=== PATIENT | male | born 1955 | race African-American/Black ===

== ENCOUNTER 2017-06-21 09:21 | Outpatient (CLI) | payer OTHER ==
--- NOTE | 2017-06-21 12:44 | MRI ---
MRI OF RIGHT SHOULDER PERFORMED WITHOUT CONTRAST ENHANCEMENT: Date: 06/21/17 HISTORY: Right shoulder pain. FINDINGS: Fairly marked AC joint hypertrophic change is present. There is a full thickness, partial width supraspinatus tendon tear. The full thickness component of t his is essentially nonretracted. Full thickness component only measures approximately 4-5 mm, but the re is fairly significant undersurface component extending into the more posterior fibers of the supra spinatus tendon. The undersurface component involves the entire width of the supraspinatus. Infraspin atus tendon is intact. The superior fibers of the subscapularis tendon are tendinopic and I suspect that there is an associa sarah undersurface tear. The biceps tendon is very tendinopic in appearance, and at the labral attachme nt of the biceps tendon just posterior to this the labrum has a frayed irregular appearance suggestin g this represents a SLAP type lesion. Tendinopathy in the interarticular portion of the biceps tendon may be accompanied by a split tear. The inferior glenohumeral ligament is intact. There is no significant rotator cuff muscle atrophy. IMPRESSION: 1. Supraspinatus tendon tear. This is a partial width, full thickness tear, with a fairly significan t undersurface component involving the remainder of the tendon. 2. Irregular appearance to the posterior superior labrum just posterior to the biceps anchor suggest ing a SLAP type tear. There is a tendinopic appearance to the interarticular portion of the biceps te ndon with some increased signal change. This could be tendinopathy but could also indicate a split te ar. There is also a probable partial thickness tear of the superior fibers of the subscapularis tendo n. POS: [facility]
== END 2017-06-21 09:22 | disposition home or self-care (01) ==
LOC: MRI 09:21
PROVIDERS: ATTEND Orthopaedic Surgery
DX: M25.511 Pain in right shoulder (principal); S46.811A Strain of other muscles, fascia and tendons at shoulder and upper arm level, right arm, initial encounter

== ENCOUNTER 2017-11-12 12:12 | Outpatient (CLI) | payer OTHER ==
[2017-11-12 13:23] LABS: Mean Corpuscular HGB CONC 33.3 g/dL (32.0-36.0); Mean Corpuscular Hemoglobin 28.3 pg (27.0-31.0); Mean Corpuscular Volume 84.9 fL (78.0-98.0); Mean Platelet Volume 8.4 fL (7.4-10.4); Platelet Count 217 thou/uL (130-400); Red Blood Cell (RBC) Count 4.97 mill/uL (4.70-6.10); White Blood Cell (WBC) Count 5.9 thou/uL (4.8-10.8)
[2017-11-12 13:39] LABS: Anion Gap 13 mmol/L (10-20); BUN (Urea Nitrogen) 18 mg/dL (8.4-25.7); Calc. Creatinine Clearance 0 mL/min (70-130); Calcium 10.4 mg/dL (7.8-10.44); Carbon Dioxide 26 mmol/L (23-31); Chloride 103 mmol/L (98-107); Estimated GFR-MDRD 80; Glucose 174 mg/dL (80-115); Potassium 4.4 mmol/L (3.5-5.1); Sodium 138 mmol/L (136-145)
--- NOTE | 2017-11-13 15:21 | EKG ---
Test Reason : Blood Pressure : / mmHG Vent. Rate : 074 BPM Atrial Rate : 074 BPM P-R Int : 168 ms QRS Dur : 090 ms QT Int : 354 ms P-R-T Axes : 069 065 043 degrees QTc Int : 392 ms Sinus rhythm with Fusion complexes Septal infarct , age undetermined cannot be excluded Abnormal ECG Confirmed by SARAH FELDER ([id number]) on 11/13/2017 3:21:08 PM Referred By: MERE Confirmed By:SARAH FELDER
== END 2017-11-12 12:13 | disposition home or self-care (01) ==
LOC: LABBT 12:12
PROVIDERS: ATTEND Orthopaedic Surgery
DX: Z01.818 Encounter for other preprocedural examination (principal); M75.101 Unspecified rotator cuff tear or rupture of right shoulder, not specified as traumatic
CPT/HCPCS: 80048; 85027; 93005; 93010

== ENCOUNTER 2017-11-14 09:40 | Day surgery (SDC) | payer OTHER ==
[2017-11-12 12:41] VITALS: BMI 28.1
[2017-11-14] MEDS ORDERED: CEFAZOLIN/Water 2 GM/20 ML SYRINGE ONE (09:42)
[2017-11-14] MEDS ORDERED: Fentanyl 100 MCG/2 ML VIAL ONE (10:43)
[2017-11-14] MEDS ORDERED: Midazolam HCl 2 mg/2 ml Vial ONE (10:43)
[2017-11-14] MEDS ORDERED: Promethazine HCl 25 MG/ML VIAL IM PRN (11:15)
[2017-11-14] MEDS ORDERED: Ondansetron HCl/PF 4 MG/2 ML Vial IVP PRN ×2 (11:15→14:12)
[2017-11-14] MEDS ORDERED: Ropivacaine HCl/PF 1,100 MG in Sodium Chloride 0.9% 440 ML NERVE BLCK SCH (11:15)
[2017-11-14] MEDS ORDERED: HYDROcodone/Acetaminophen 5/325 mg Tablet PO PRN ×2 (11:15)
[2017-11-14] MEDS ORDERED: Zolpidem Tartrate 5 MG TAB PO PRN (11:15)
[2017-11-14] MEDS ORDERED: traMADol HCl 50 MG TAB PO PRN ×2 (11:15)
[2017-11-14] MEDS ORDERED: Fentanyl 100 MCG/2 ML VIAL IV PRN (11:16)
[2017-11-14] MEDS ORDERED: Bupivacaine HCl 0.25%/Epi 0.0005/PF 10 ML VIAL FS ONE ×2 (12:07→12:08)
[2017-11-14] MEDS ORDERED: Phenylephrine HCL 10 MG/ML VIAL ONE (13:15)
[2017-11-14] MEDS ORDERED: PHENYLEPHRINE-NS 100 MCG/ML 10 ML SYRINGE ONE ×2 (13:15→13:59)
[2017-11-14] MEDS ORDERED: Ropivacaine 0.5% HCl/PF (150 MG/30 ML VIAL) ONE (13:45)
[2017-11-14] MEDS ORDERED: Ropivacaine 0.2% HCl/PF (40 MG/20 ML VIAL) ONE (13:45)
[2017-11-14] MEDS ORDERED: ePHEDrine/0.9% NaCl/PF SYRINGE 50 mg/10 ml ONE (13:59)
[2017-11-14] MEDS ORDERED: Ondansetron HCl/PF 4 MG/2 ML Vial ONE (13:59)
[2017-11-14] MEDS ORDERED: Ketorolac Tromethamine 30 MG/ML VIAL ONE (13:59)
[2017-11-14] MEDS ORDERED: PROPOFOL 200 MG/20 ML VIAL ONE (13:59)
[2017-11-14] MEDS ORDERED: Glycopyrrolate 0.2 MG/ML 5 ML SYRINGE ONE (13:59)
[2017-11-14] MEDS ORDERED: Dexamethasone 20 MG/5 ML VIAL ONE (13:59)
[2017-11-14] MEDS ORDERED: Morphine Sulfate 2 MG/ML SYRINGE SLOW IVP PRN (14:12)
[2017-11-14] MEDS ORDERED: Promethazine HCl 25 MG/ML VIAL SLOW IVP PRN (14:12)
--- NOTE | 2017-11-14 22:02 | OP ---
DATE OF PROCEDURE: 11/14/2017 PREOPERATIVE DIAGNOSES: Right full thickness supraspinatus tear, distal clavicle arthritis, chronic shoulder pain. POSTOPERATIVE DIAGNOSES: 1. Right rotator cuff repair. 2. Impingement syndrome. PROCEDURE PERFORMED: 1. Right rotator cuff repair. 2. Subacromial decompression. STAFF: Corbin Vigil M.D. ECONOMICS ANALYST: None. ANESTHESIA: Dr. Naik The patient received general endotracheal intubation and interscalene block. ESTIMATED BLOOD LOSS: 30 mL. TOURNIQUET TIME: None. IMPLANTS: A 5.5 corkscrew and a 4.75 SwiveLock Arthrex. ANTIBIOTICS: Ancef 2 grams. COMPLICATIONS: None. HISTORY OF PRESENT ILLNESS: Mr. Rodriguez is a 62-year-old male, who is well known to my service, I have known him for several years. 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 He had MRI evidence showing a full thickness rotator cuff tear. I discussed with the patient undergoing a right arthroscopic rotator cuff repair with evaluation of the biceps. The patient understood the risks of possible subacromial decompression. He again understood the risks and benefits of this procedure to include pain, scar, bleeding, infection, damage to vital structures , decreased range of motion or strength, continued pain despite surgical intervention. The patient understood these risks and benefits and elected to proceed. PROCEDURE IN DETAIL: Time out was performed designating the patient's right upper extremity as the operative site based on sight, consents, and markings. After completion of timeout, the patient's right upper extremity was prepped and draped in a sterile fashion. The patient's posterior working portal was placed. He was placed in a beach chair position with bony prominences well padded. The patient's posterior working portal and anterior portal were placed , visualized intra-articularly, there was some erythema and swelling on the superior aspect of the labrum. There was some degenerative tearing, but no full thickness tear. The patient's biceps looked good through its course. The patient's subscapularis was intact. There was no capsular tear intraarticularly. There was just some fraying only on the articular surface from entry of the portal, but no large full-thickness defects of the glenoid. We removed the subacromial and decompressed the bursa. There is a small hook, which I took a bur and took about 5 mm of bone of the acromion to decompress the acromion. I exposed and found the patient's full thickness tear was only about 5 mm. Therefore, I made a little bit of the footprint placed a 5.5 corkscrew, passed four sutures, tied them. My posterior knot was nice and well fixed. I cut the sutures at the base, my anterior knot had a slight space in between. Given this, I used it as a double row transosseous equivalent placed a second row to abut the anchor down, placed the anchor into place, placed a 4.75 SwiveLock, removed the other passing sutures, cut the nail and had a good over approximation of the rotator cuff. We then washed out the joint and closed with nylon. The patient will be admitted, placed in lateral row, placed the patient in a splint, the lateral row was placed, cut the knots, had overall good approximation of the rotator cuff. Washed and closed the skin with nylon. The patient was placed in an abduction pillow and sling. Follow up with me in about 10-14 days. ROLANDO
== END 2017-11-14 17:25 | disposition home or self-care (01) ==
LOC: SDC 09:40
PROVIDERS: ATTEND Orthopaedic Surgery
PROC: 0LM14ZZ Reattachment of Right Shoulder Tendon, Percutaneous Endoscopic Approach (ICD-10-PCS; principal; 2017-11-14)
PROC: 0RNJ4ZZ Release Right Shoulder Joint, Percutaneous Endoscopic Approach (ICD-10-PCS; principal; 2017-11-14)
PROC: 0RHJ44Z Insertion of Internal Fixation Device into Right Shoulder Joint, Percutaneous Endoscopic Approach (ICD-10-PCS; principal; 2017-11-14)
DX: M75.121 Complete rotator cuff tear or rupture of right shoulder, not specified as traumatic (principal); M75.41 Impingement syndrome of right shoulder; M19.011 Primary osteoarthritis, right shoulder; E11.319 Type 2 diabetes mellitus with unspecified diabetic retinopathy without macular edema; Z79.84 Long term (current) use of oral hypoglycemic drugs; Z79.899 Other long term (current) drug therapy
CPT/HCPCS: C1713; J1100; J1885; J2250; J2370; J2405; J2704; J2795; J3010; J7050

== ENCOUNTER 2020-09-22 11:27 | Outpatient (CLI) | payer OTHER, MEDICARE | END 2020-09-22 11:28 | disposition home or self-care (01) | LOC: RAD-FRANK 11:27 | PROVIDERS: ATTEND Nurse Practitioner | DX: M54.5 Low back pain (principal); M47.816 Spondylosis without myelopathy or radiculopathy, lumbar region | CPT/HCPCS: 72100 ==

== ENCOUNTER 2021-11-15 10:22 | Outpatient (CLI) | payer MEDICARE, OTHER | END 2021-11-15 10:23 | disposition home or self-care (01) | LOC: SCSRAD 10:22 | PROVIDERS: ATTEND Family Medicine | DX: M79.644 Pain in right finger(s) (principal) | CPT/HCPCS: 36415; 83520; 86200 ==

== ENCOUNTER 2024-04-20 10:04 | Outpatient (CLI) | payer MEDICARE, OTHER | END 2024-04-20 10:05 | disposition home or self-care (01) | LOC: SCSRAD 10:04 | PROVIDERS: ATTEND Family Medicine | DX: M25.511 Pain in right shoulder (principal) ==